=== PATIENT | male | born 1970 | race Caucasian/White ===

== ENCOUNTER 2019-03-16 11:22 | Emergency (ER) | payer OTHER ==
[~2019-03-16] VITALS: Ht 175.3 cm; Wt 77.1 kg
[2019-03-16 11:30] VITALS: BP_SYST 135
--- NOTE | 2019-03-16 11:30 | NUR ---
Patient to ER bed 6 to gown for evaluation. Side rails up. Report given to ZE CUBA.
--- NOTE | 2019-03-16 12:08 | NUR ---
PATIENT CAME IN COMPLAINING OF RASH ON RIGHT UPPER THIGH THAT STARTED SUNDAY MORNING. PATIENT ALSO COMPLAINING OF HEADACHE THAT GETS WORST WITH RASH. PATIENT TOOK IBUPROFEN THAT HELPS FOR A LITTLE. PATIENT COMPLAINING OF PAIN 3/10 AND STATES IT HERNANDEZ. PATIENT NOT COMPLAINING OF SOB. PATIENT ALERT AND ORIENTED X4.
--- NOTE | 2019-03-16 12:42 | NUR ---
ER Dr. PEÑA at bedside examining patient.
[2019-03-16 13:11] VITALS: BP_SYST 135
--- NOTE | 2019-03-16 13:11 | NUR ---
PATIENT LEFT WITH OUT DISCHARGE PAPERWORK.
== END 2019-03-16 13:11 | disposition home or self-care (01) ==
LOC: SED 11:22
DX: S80.861A Insect bite (nonvenomous), right lower leg, initial encounter (principal); L03.115 Cellulitis of right lower limb; W57.XXXA Bitten or stung by nonvenomous insect and other nonvenomous arthropods, initial encounter; Y93.89 Activity, other specified; Y92.89 Other specified places as the place of occurrence of the external cause; Y99.8 Other external cause status
CPT/HCPCS: 99283